=== PATIENT | male | born 1995 | race American Indian/Alaskan Native ===

== ENCOUNTER 2020-10-20 21:12 | Emergency (ER) | payer MEDICAID, OTHER ==
[2020-10-20 21:56] VITALS: BP 137/87
[2020-10-20 23:10] LABS: Basophils # (Auto) 0.1 K/mm3 (0.0-0.1); Basophils % (Auto) 1.3 % (0.0-1.8); Eosinophils % (Auto) 0.2 % (0.0-4.3); Hematocrit 43.1 % (35.5-45.6); Hemoglobin 15.1 gm/dl (11.8-15.2); Lymphocytes # (Auto) 1.8 K/mm3 (1.2-5.4); Lymphocytes % (Auto) 18.6 % (13.4-35.0); Mean Corpuscular HGB Conc 35 % (32-34); Mean Corpuscular Volume 76 fl (84-94); Monocytes # (Auto) 1.5 K/mm3 (0.0-0.8); Monocytes % (Auto) 15.1 % (0.0-7.3); Platelet Count 217 K/mm3 (140-440); Red Blood Count 5.67 M/mm3 (3.65-5.03); Red Cell Distribution Width 13.8 % (13.2-15.2)
[2020-10-20 23:28] LABS: BUN/Creatinine Ratio 11; Blood Urea Nitrogen 12 mg/dL (9-20); Calcium 9.6 mg/dL (8.4-10.2); Hemolysis Index 1
[2020-10-21] MEDS ORDERED: CLINDAMYCIN 300 MG CAP PO ONE (00:47)
[2020-10-21] MEDS ORDERED: IBUPROFEN ORAL LIQD 100 MG/5 ML ORAL.LIQD PO ONE (00:47)
[2020-10-21] MEDS ORDERED: dexAMETHasone 20 MG/5 ML VIAL IM ONE (00:47)
--- NOTE | 2020-10-21 02:07 | Emergency Department Report ---
ED General Adult HPI - General Chief complaint: Sore Throat Stated complaint: FEVER/SORE THROAT Time Seen by Provider: 10/21/20 00:47 Source: patient Mode of arrival: Ambulatory Limitations: No Limitations - History of Present Illness Initial comments: Patient 25-year-old male who presents for sore throat malaise low-grade fever x3 days. Symptoms are exacerbated by swallowing. Symptoms are relieved by nothing tried. Patient denies shortness of breath, there is no stridor, no wheezing. Patient denies history of asthma or bronchitis. Denies suspicious contacts. Patient is tolerating p.o. intake. Denies speech difficulty. - Related Data Previous Rx's Medication Instructions Recorded Last Taken Type Docusate Sodium [Colace] 100 mg PO BID PRN #60 capsule 04/12/15 Unknown Rx Hydrocortisone [Anucort-HC SUPPOS] 25 mg RC BID #7 supp.rect 04/12/15 Unknown Rx Sulfamethoxazole/Trimethoprim 1 each PO BID #14 tablet 04/12/15 Unknown Rx [Bactrim DS TAB] Clindamycin [Clindamycin CAP] 300 mg PO Q6H #28 10/21/20 Unknown Rx Dexamethasone [Decadron] 6 mg PO BID 2 Days #4 tablet 10/21/20 Unknown Rx Ibuprofen [Motrin 800 MG tab] 800 mg PO Q8HR PRN #30 tablet 10/21/20 Unknown Rx dexAMETHasone [Decadron] 8 mg PO Q12H #4 tablet 10/21/20 Unknown Rx Allergies Allergy/AdvReac Type Severity Reaction Status Date / Time No Known Allergies Allergy Unverified 04/12/15 19:50 ED Review of Systems ROS: Stated complaint: FEVER/SORE THROAT Other details as noted in HPI Constitutional: malaise Eyes: denies: eye pain, eye discharge, vision change ENT: throat pain Respiratory: denies: cough, shortness of breath, wheezing Cardiovascular: as per HPI. denies: chest pain, palpitations, dyspnea on exertion Endocrine: no symptoms reported Gastrointestinal: denies: abdominal pain, nausea, vomiting, diarrhea Genitourinary: denies: urgency, dysuria Musculoskeletal: denies: back pain, joint swelling, arthralgia Skin: denies: rash, lesions Neurological: denies: headache, weakness, paresthesias, vertigo Psychiatric: denies: anxiety, depression Hematological/Lymphatic: denies: easy bleeding, easy bruising ED Past Medical Hx - Social History Smoking Status: Never Smoker Substance Use Type: None - Medications Home Medications: Home Medications Medication Instructions Recorded Confirmed Last Taken Type Docusate Sodium [Colace] 100 mg PO BID PRN #60 capsule 04/12/15 Unknown Rx Hydrocortisone [Anucort-HC SUPPOS] 25 mg RC BID #7 supp.rect 04/12/15 Unknown Rx Sulfamethoxazole/Trimethoprim 1 each PO BID #14 tablet 04/12/15 Unknown Rx [Bactrim DS TAB] Clindamycin [Clindamycin CAP] 300 mg PO Q6H #28 10/21/20 Unknown Rx Dexamethasone [Decadron] 6 mg PO BID 2 Days #4 tablet 10/21/20 Unknown Rx Ibuprofen [Motrin 800 MG tab] 800 mg PO Q8HR PRN #30 tablet 10/21/20 Unknown Rx dexAMETHasone [Decadron] 8 mg PO Q12H #4 tablet 10/21/20 Unknown Rx ED Physical Exam - General Limitations: No Limitations General appearance: alert, in no apparent distress - Head Head exam: Present: atraumatic, normocephalic - Eye Eye exam: Present: normal appearance, PERRL, EOMI Pupils: Present: normal accommodation - ENT ENT exam: Present: mucous membranes moist, TM's normal bilaterally, normal external ear exam - Expanded ENT Exam Expanded Ear exam: Present: normal external inspection Mouth exam: Present: normal external inspection. Absent: trismus Teeth exam: Present: normal inspection Throat exam: Positive: tonsillar erythema (R), tonsillomegaly (R), tonsillar exudate (Right ), other (Uvula remains midline, there is no stridor, airways patent.). Negative: R peritonsillar mass, L peritonsillar mass - Neck Neck exam: Present: normal inspection, full ROM, lymphadenopathy. Absent: tenderness, meningismus, thyromegaly - Respiratory Respiratory exam: Present: normal lung sounds bilaterally. Absent: respiratory distress, wheezes, stridor, chest wall tenderness - Cardiovascular Cardiovascular Exam: Present: regular rate, normal rhythm, normal heart sounds. Absent: systolic murmur, diastolic murmur, rubs, gallop - GI/Abdominal GI/Abdominal exam: Present: soft, normal bowel sounds. Absent: distended, te nderness, bruit, hernia - Rectal Rectal exam: Present: deferred - Extremities Exam Extremities exam: Present: normal inspection, full ROM, normal capillary refill. Absent: tenderness - Back Exam Back exam: Present: normal inspection, full ROM. Absent: CVA tenderness (R), CVA tenderness (L) - Neurological Exam Neurological exam: Present: alert, oriented X3, CN II-XII intact, normal gait, reflexes normal. Absent: motor sensory deficit - Expanded Neurological Exam Expanded Patient oriented to: Present: person, place Speech: Present: fluid speech Cranial nerves: Gag Reflex: Normal, Tongue Deviation: Normal Motor strength exam: RUE: 5, LUE: 5, RLE: 5, LLE: 5 Best Eye Response (Easley): (4) open spontaneously Best Motor Response (Marli): (6) obeys commands Best Verbal Response (Easley): (5) oriented Marli Total: 15 - Psychiatric Psychiatric exam: Present: normal affect, normal mood - Skin Skin exam: Present: warm, dry, intact, normal color. Absent: rash ED Course Vital Signs 10/20/20 21:51 Temperature 99.9 F H Pulse Rate 87 Respiratory 18 Rate Blood Pressure 137/87 O2 Sat by Pulse 99 Oximetry ED Medical Decision Making - Lab Data Result diagrams: 10/20/20 22:52 10/20/20 22:52 - Medical Decision Making Airway is patent, this is right tonsil exudate only, there is no peritonsillar abscess noted. Plan clindamycin, ibuprofen, Decadron, follow-up with ENT in 2 to 3 days. Patient verbalized agreement and understanding with discharge plan. Patient DC'd home in stable condition at this time Critical care attestation.: If time is entered above; I have spent that time in minutes in the direct care of this critically ill patient, excluding procedure time. ED Disposition Clinical Impression: Acute bacterial tonsillitis Disposition: DC-01 TO HOME OR SELFCARE Is pt being admited?: No Does the pt Need Aspirin: No Condition: Stable Instructions: Tonsillitis, Hand Washing Additional Instructions: Take medications as prescribed, return to ED should symptoms worsen. Prescriptions: Clindamycin [Clindamycin CAP] 300 mg PO Q6H #28 dexAMETHasone [Decadron] 8 mg PO Q12H #4 tablet Dexamethasone [Decadron] 6 mg PO BID 2 Days #4 tablet Ibuprofen [Motrin 800 MG tab] 800 mg PO Q8HR PRN #30 tablet PRN Reason: pain Referrals: PRIMARY CARE, [Primary Care Provider] - 3-5 Days Forms: Work/School Release Form(ED) Time of Disposition: 02:17
== END 2020-10-21 02:55 | disposition home or self-care (01) ==
LOC: ED 21:12
DX: J03.80 Acute tonsillitis due to other specified organisms (principal); B96.89 Other specified bacterial agents as the cause of diseases classified elsewhere; Z79.899 Other long term (current) drug therapy
CPT/HCPCS: 36415; 80048; 85025; 96372; 99283; J1100